=== PATIENT | female | born 1945 | race Caucasian/White ===

== ENCOUNTER 2021-09-20 12:19 | Day surgery (SDC) | payer MEDICARE, OTHER ==
[~2021-09-20] VITALS: Ht 165.1 cm; Wt 89.4 kg
[2021-09-20] MEDS ORDERED: METO25ER ×2 (12:57→12:59)
[2021-09-20] MEDS ORDERED: THYROID (12:58)
[2021-09-20] MEDS ORDERED: LEVSOD100 (12:59)
[2021-09-20] MEDS ORDERED: Dyazide 37.5-21 EACH (13:00)
--- NOTE | 2021-09-20 14:04 | NUR ---
09/20/21 1404 Luther Christopher BIOPSY FORCEPS OPENED BUT THEN DECIDED TO NOT USE IT
== END 2021-09-20 14:26 | disposition home or self-care (01) ==
LOC: ORSCSDS 12:19
PROVIDERS: Surgery
PROC: 3E0H8GC Introduction of Other Therapeutic Substance into Lower GI, Via Natural or Artificial Opening Endoscopic (ICD-10-PCS; principal; 2021-09-20 13:30)
DX: R10.9 Unspecified abdominal pain (principal); I10 Essential (primary) hypertension; E11.9 Type 2 diabetes mellitus without complications; E66.9 Obesity, unspecified; Z68.33 Body mass index [BMI] 33.0-33.9, adult; Z79.899 Other long term (current) drug therapy
CPT/HCPCS: J0461; J2405; J2704; J7120

== ENCOUNTER 2021-10-24 11:39 | Inpatient (IN) | payer MEDICARE, OTHER ==
[~2021-10-24] VITALS: Ht 162.6 cm; Wt 87.2 kg
[~2021-10-24 11:39] MED LIST: Dyazide 37.5-21 EACH PO; LEVSOD100 PO; METO25ER; THYROID
--- NOTE | 2021-10-26 07:15 | NUR ---
ADMITTED TO UNIT PATIENT UPSET COULD NOT HAVE VISITOR. UNDERSTANDS WHY BUT FOUND OUT THIS MORNIGN WHEN ARRIVED AND IS UPSET. Ambulatory in Day Surgery. Patient confirms NPO status and agrees with scheduled surgery.
--- NOTE | 2021-10-26 07:16 | NUR ---
PATIENT STATED GLASSES LEFT AT HOME.
--- NOTE | 2021-10-26 07:17 | NUR ---
BELONGINGS TAKEN TO PACU
--- NOTE | 2021-10-26 07:48 | NUR ---
TAKEN TO OR ONCE BEING TOLD FROM IN FLIGHT REFUELING OPERATOR. TAKEN AT HIS TIME AFTER ROOM WAS SET UP.
[2021-10-26 15:59] LABS: Hematocrit 32.1 % (33.0-51.0); Hemoglobin 10.7 g/dL (11.5-16.0)
--- NOTE | 2021-10-26 19:04 | NUR ---
SHIFT SUMMARY: OPEN CHOLECTOMY PATIENT CAME BACK FROM PACU TODAY 10/26/21 AT 1645. SHE IS ALERT AND ORIENTEDX4. THOUGH CAME BACK NAUSEOUS/VOMITING. PATIENT WAS GIVEN IV ZOFRAN, PHENERGAN, AND NOW VALIUM. PATIENT IS SOUND ASLEEP AT THIS TIME. FOR PAIN PATIENT IS ON FORMSTONE FITTER FENTANYL. SHE HAS A MIDLINE ABE THAT IS C/D/I. ON HER RLQ SHE HAS A GIO DRAIN WITH BRIGHT RED OUTPUT. BULB IS COMPRESSED AT THIS TIME. HER OSTOMY IS ON HER LLQ WITH SMALL AMOUNT OF RED IN OSTOMY BAG. PATIENT ALSO HAD A TOTAL HYSTERECTOMY DUE TO A CANCEROUS MASS. PATIENT IS TO BE NPO. PATIENT CALLS APPROPRIATELY. CALL LIGHT WITHIN REACH. THE PLAN IS TO BE HERE FOR AT LEAST 5 DAYS TO SEE IMPROVEMENT OF PAIN MANAGEMENT AND OUTPUT IN HER NEW OSTOMY.
--- NOTE | 2021-10-26 19:45 | NUR ---
DIDN'T REMEMBER CHARTING THAT THE PT HAD AN OSTOMY WITOUT DRAINAGE AND DRESSING INTACT BEFORE LEAVING PACU. ALL BELONINGS RETURNED TO PATIENT.
--- NOTE | 2021-10-27 05:42 | NUR ---
MANAGER OF CREATIVE SERVICES SUMMARY POD 0 AFTER COLECTOMY/HYSTERECTOMY EARLIER TODAY. MIDLINE ABE DRESSING C/D/I. GIO DRAIN TO RLQ DRAINING SEROSANGUINEOUS FLUID, 50 ML DRAINED THIS SHIFT. COLOSTOMY DRAINING VERY SMALL AMOUNTS OF PINK TINGED FLUID, STOMA PINK AND ROUND WITH NO ISSUES NOTED. PT'S PAIN FAIRLY WELL MANAGED WITH CURRENT CLINICAL CARE LEADER FENTANYL SETTINGS. PT DOES HAVE SOME BREAKTHROUGH PAIN MOSTLY WHEN MOVING AROUND. ARSHAD CATH PATENT AND DRAINING SOME BLUE TINTED URINE LEFT OVER FROM PROCEDURE. VSS, WILL CONTINUE TO MONITOR.
[2021-10-27] MEDS ORDERED: METO25 PO (05:52)
[2021-10-27 06:25] LABS: BASOPHILS ABSOLUTE AUTO 0.04 K/mm3 (0.00-0.23); BASOPHILS PERCENT AUTO 0 % (0-2); EOSINOPHILS ABSOLUTE AUTO 0.04 K/mm3 (0.00-0.68); EOSINOPHILS PERCENT AUTO 0 % (0-6); Hematocrit 30.3 % (33.0-51.0); Hemoglobin 9.8 g/dL (11.5-16.0); IMMATURE GRAN ABSOLUTE AUTO 0.08 K/mm3 (0.00-0.10); IMMATURE GRAN PERCENT AUTO 1 % (0-1); LYMPHOCYTES ABSOLUTE AUTO 1.54 K/mm3 (0.84-5.20); LYMPHOCYTES PERCENT AUTO 10 % (21-46); MONOCYTES ABSOLUTE AUTO 1.33 K/mm3 (0.16-1.47); MONOCYTES PERCENT AUTO 9 % (4-13); Mean Corpuscular HGB 29.9 pg (26.0-34.0); Mean Corpuscular HGB Conc 32.3 g/dL (31.5-36.5); Mean Corpuscular Volume 92 fL (80-100); NEUTROPHILS ABSOLUTE AUTO 11.72 K/mm3 (1.96-9.15); NEUTROPHILS PERCENT AUTO 80 % (41-73); Platelet Count 368 K/mm3 (150-400); RDW Coefficient Variation 13.6 % (11.7-14.2); RDW Standard Deviation 45.9 fL (35.1-46.3); Red Blood Cell Count 3.28 M/mm3 (3.80-5.20); White Blood Cell Count 14.75 K/mm3 (4.00-11.30)
[2021-10-27 07:12] LABS: Bun/Creatinine Ratio 28.8 (12.0-20.0); Calcium, Blood 8.5 mg/dL (8.5-10.1); Creatinine, Blood 1.32 mg/dL (0.40-1.00); Potassium, Blood 3.2 mmol/L (3.5-5.5)
--- NOTE | 2021-10-27 11:17 | NUR ---
10/27/21 1117 Roxi Thornton VERIFICATIONS: EDIT CHART.
--- NOTE | 2021-10-27 18:37 | NUR ---
SHIFT SUMMARY PT A&OX4, VSS/RA. POD1 COLECTOMY/HYSTER, ABE D/I, GIO SS 90 MLS OUT, OSTOMY RED/BEEFY, NOTHING OUT. ARSHAD PATENT & DRAINING, STAT LOCK ON, OFF FLOOR. BOB ICE CHIPS, NO N&V THIS SHIFT. PAIN: NAVAL DESIGNER FENT WITH DEMAND BUTTON AND 25 MCGS FENT FOR BREAKTHROUGH PAIN X3. STAND/TRANSFTER TO CHAIR/UP FOR 2 HOURS. REPOSITIONS SELF IN BED. WILL REPORT TO ONCOMING NOC AMINATA.
--- NOTE | 2021-10-28 01:01 | NUR ---
WENT TO REPLACE FENT VIAL FOR CALL OUT CLERK, ON REMOVAL VIAL LEAKED ONTO THE FLOOR. AMINATA QUINTERO AND AMINATA QUESADA WITNESSED VIAL LEAKING. DEVIN IN PHARMACY CALLED ABOUT INCIDENT.
--- NOTE | 2021-10-28 03:53 | NUR ---
SHIFT SUMMARY A/O X4. POD2 OPEN COLECTOMY AND HYSTERECTOMY WITH BILATERAL OOPHORECTOMY. MIDLINE INCISION WITH ABE DRESSING, C/D/I. OSTOMY PINK AND BEEFY, NO BOWEL OUTPUT THIS SHIFT. GIO DRAIN TO RLQ DRAINING SS FLUID. PAIN BEING MANAGED WITH HOME BUILDER PUMP AND BREAKTHROUGH PAIN MEDICATION. PHENERGAN GIVEN X1 FOR NAUSEA. ARSHAD DRAINING TO GRAVITY. LR AT 150/HR. WILL CONTINUE TO MONITOR AND REPORT TO ONCOMING RN.
[2021-10-28 04:09] LABS: BASOPHILS ABSOLUTE AUTO 0.05 K/mm3 (0.00-0.23); BASOPHILS PERCENT AUTO 0 % (0-2); EOSINOPHILS PERCENT AUTO 1 % (0-6); Hematocrit 27.6 % (33.0-51.0); Hemoglobin 8.6 g/dL (11.5-16.0); IMMATURE GRAN PERCENT AUTO 1 % (0-1); LYMPHOCYTES ABSOLUTE AUTO 1.65 K/mm3 (0.84-5.20); LYMPHOCYTES PERCENT AUTO 12 % (21-46); MONOCYTES ABSOLUTE AUTO 1.05 K/mm3 (0.16-1.47); MONOCYTES PERCENT AUTO 8 % (4-13); Mean Corpuscular HGB 29.4 pg (26.0-34.0); Mean Corpuscular HGB Conc 31.2 g/dL (31.5-36.5); Mean Corpuscular Volume 94 fL (80-100); Mean Platelet Volume 9.1 fL (9.1-12.4); NEUTROPHILS ABSOLUTE AUTO 10.42 K/mm3 (1.96-9.15); NEUTROPHILS PERCENT AUTO 78 % (41-73); Platelet Count 322 K/mm3 (150-400); RDW Coefficient Variation 13.8 % (11.7-14.2); RDW Standard Deviation 46.9 fL (35.1-46.3); Red Blood Cell Count 2.93 M/mm3 (3.80-5.20); White Blood Cell Count 13.37 K/mm3 (4.00-11.30)
[2021-10-28 04:29] LABS: Bun/Creatinine Ratio 23.8 (12.0-20.0); Calcium, Blood 8.6 mg/dL (8.5-10.1); Creatinine, Blood 1.05 mg/dL (0.40-1.00); Potassium, Blood 3.2 mmol/L (3.5-5.5)
--- NOTE | 2021-10-28 16:05 | NUR ---
SHIFT SUMMARY PT A&OX4, VSS/RA-BIOX BEDSIDE, SATS >93%; TCDB & I.S. EDU/ENC/DEMO T/O DAY. POD2 COLECTOMY/HYSTER, ABE CDI, GIO 30 MLS SS OUT, OSTOMY SS OUT, NO STOOL. BOB ICE CHIPS, NO N&V TODAY. PAIN MANAGED WITH FENT CUT OFF SAW OPERATOR METAL AND TYLENOL, NO BREAKTHRU MED REQ. IV AND POWERGLIDE RUE, IVF @ 100 MLS/HR. ARSHAD PATENT & DRAINING GREEN/YELLOW-CLEAR URINE, OFF FLOOR, STAT LOCK ON. WILL REPORT TO ONCOMING NOC AMINATA.
[2021-10-29 03:51] LABS: BASOPHILS ABSOLUTE AUTO 0.03 K/mm3 (0.00-0.23); BASOPHILS PERCENT AUTO 0 % (0-2); EOSINOPHILS ABSOLUTE AUTO 0.33 K/mm3 (0.00-0.68); EOSINOPHILS PERCENT AUTO 3 % (0-6); Hematocrit 24.6 % (33.0-51.0); Hemoglobin 7.8 g/dL (11.5-16.0); IMMATURE GRAN ABSOLUTE AUTO 0.07 K/mm3 (0.00-0.10); IMMATURE GRAN PERCENT AUTO 1 % (0-1); LYMPHOCYTES ABSOLUTE AUTO 1.68 K/mm3 (0.84-5.20); LYMPHOCYTES PERCENT AUTO 14 % (21-46); MONOCYTES ABSOLUTE AUTO 0.78 K/mm3 (0.16-1.47); MONOCYTES PERCENT AUTO 7 % (4-13); Mean Corpuscular HGB 29.7 pg (26.0-34.0); Mean Corpuscular HGB Conc 31.7 g/dL (31.5-36.5); Mean Corpuscular Volume 94 fL (80-100); NEUTROPHILS PERCENT AUTO 76 % (41-73); Platelet Count 313 K/mm3 (150-400); RDW Coefficient Variation 13.5 % (11.7-14.2); RDW Standard Deviation 46.5 fL (35.1-46.3); Red Blood Cell Count 2.63 M/mm3 (3.80-5.20); White Blood Cell Count 11.99 K/mm3 (4.00-11.30)
[2021-10-29 04:11] LABS: Anion Gap 5 mmol/L (6-16); Blood Urea Nitrogen 19 mg/dL (8-24); Bun/Creatinine Ratio 22.5 (12.0-20.0); CO2, Blood 28 mmol/L (21-32); Calcium, Blood 8.3 mg/dL (8.5-10.1); Chloride, Blood 105 mmol/L (98-108); Creatinine, Blood 0.85 mg/dL (0.40-1.00); Glomerular Filtration Rate >60 (60-); Glucose, Blood 104 mg/dL (70-99); Sodium, Blood 138 mmol/L (136-145)
--- NOTE | 2021-10-29 16:38 | NUR ---
SUMMARY: PT IS POD3 OPEN COLECTOMY AND HYSTERECTOMY. VSS, A/O. SURGICAL SITE WNL, ABE CDI. SS DRAINAGE FROM OSTOMY, NO FLATUS NOTED. BT ARE HYPOACTIVE, PT HAS DENIED N/V AND TOLERATING ICE CHIPS. FENTANYAL KENO TERMINAL OPERATOR AND SCHEDULED TYLENOL APPEAR TO BE MANAGING PAIN. PT SAT UP AND CHAIR TODAY AND REPORTED MORE PAIN WITH MOVEMENT. TOTAL OF 70ML OF SS DRAINAGE FROM GIO. PT ABLE TO VOID SINCE ARSHAD DC'D. NO ACUTE SAFETY CONCERNS AT THIS TIME, WILL REPORT TO GINA COATES.
--- NOTE | 2021-10-29 18:29 | NUR ---
POST OP: REPORT RECEIVED FROM CIPRIANO, INDUSTRIAL ENG. UPON ARRIVAL TO UNIT PT IS ORIENTED, A BIT DROWSY. SURGICAL SITES WNL, VSS. PT ASKING FOR ICE CHIPS. WILL CTM.
--- NOTE | 2021-10-30 03:49 | NUR ---
A/O X4. POD4 OPEN COLECTOMY AND HYSTERECTOMY WITH OOPHERECTOMY, MIDLINE INCISION WITH ABE DRESSING, SCANT AMOUNT OF RED DRIED DRAINAGE, INTACT. GIO DRAIN TO RLQ- 100ML EMPTIED SO FAR THIS SHIFT. OSTOMY PINK AND BEEFY- APPLICATION CHANGED THIS SHIFT, NO BOWEL MOVEMENT. VOIDING WELL ON BSC. FENT BORING MILL SET UP OPERATOR FOR PAIN CONTROL, MODERATE RELIEF. OXYGEN SATURATION MAINTAINED ABOVE 92% ON RA THIS SHIFT. VSS. WILL CONTINUE TO MONITOR AND REPORT TO ONCOMING RN.
--- NOTE | 2021-10-30 16:42 | NUR ---
HARIS RESIDENTIAL SUPPORT WORKER DC'D AT ABOUT 1345, 1 NARCO GIVEN, SEE PAIN ASSESSMENT. WILL CTM AND MEDICATE PER EMAR
--- NOTE | 2021-10-30 16:44 | NUR ---
SUMMARY: PT IS POD4 COLECTOMY/HYSTERECTOMY. NO ACUTE CHANGES TODAY, VSS, A/O. SURGICAL SITE IS WNL, CDI. ABOUT 80ML OF GIO OUTPUT. BOWEL TONES ACTIVE. PT REPORTED SOME NAUSEA AFTER NARCO, RESLOVED WITH ZOFRAN. ABLE TO HAVE SMALL BITES OF FULL LIQ DIET FOR LUNCH. PAIN APPEARS TO BE MANAGED CURRENTLY WITH 1 NARCO AND 25MCG OF FENTANYAL FOR BREAKTHROUGH PAIN. PT IS VOIDING AND AMBULATES WELL TO CHAIR AND COMMODE. NO SAFETY CONCERNS, WILL CTM AND REPORT TO GINA COATES.
[2021-10-31 04:42] LABS: BASOPHILS ABSOLUTE AUTO 0.04 K/mm3 (0.00-0.23); BASOPHILS PERCENT AUTO 0 % (0-2); EOSINOPHILS ABSOLUTE AUTO 0.35 K/mm3 (0.00-0.68); EOSINOPHILS PERCENT AUTO 4 % (0-6); Hematocrit 24.8 % (33.0-51.0); Hemoglobin 7.7 g/dL (11.5-16.0); IMMATURE GRAN ABSOLUTE AUTO 0.07 K/mm3 (0.00-0.10); IMMATURE GRAN PERCENT AUTO 1 % (0-1); LYMPHOCYTES ABSOLUTE AUTO 1.58 K/mm3 (0.84-5.20); LYMPHOCYTES PERCENT AUTO 17 % (21-46); MONOCYTES ABSOLUTE AUTO 0.65 K/mm3 (0.16-1.47); MONOCYTES PERCENT AUTO 7 % (4-13); Mean Corpuscular HGB 29.4 pg (26.0-34.0); Mean Corpuscular Volume 95 fL (80-100); Mean Platelet Volume 8.9 fL (9.1-12.4); NEUTROPHILS ABSOLUTE AUTO 6.47 K/mm3 (1.96-9.15); NEUTROPHILS PERCENT AUTO 71 % (41-73); NRBC ABSOLUTE 0.02 K/mm3 (0.00-0.02); NRBC Auto 0.2 /100 WBC (0.0-0.2); Platelet Count 327 K/mm3 (150-400); RDW Coefficient Variation 13.9 % (11.7-14.2); RDW Standard Deviation 46.8 fL (35.1-46.3); Red Blood Cell Count 2.62 M/mm3 (3.80-5.20); White Blood Cell Count 9.16 K/mm3 (4.00-11.30)
--- NOTE | 2021-10-31 05:01 | NUR ---
SHIFT SUMMARY PT A/0 X4. VSS. POD5 OPEN COLECTOMY WITH HYSTERECTOMY AND OOPHERECTOMY. MIDLINE INCISION WITH ABE DRESSING INTACT, GIO DRAIN TO RLQ PUTTING OUT SS DRAINAGE. OSTOMY PINK AND BEEFY, NO BM AT THIS TIME. PAIN MANAGED WITH PO PAIN MEDICATIONS. GETTING UP TO BEDSIDE COMMODE WITH STAND BY ASSIST. VOIDING WELL. WILL CONTINUE TO MONITOR AND REPORT TO ONCOMING RN.
[2021-10-31 05:28] LABS: Anion Gap 7 mmol/L (6-16); Blood Urea Nitrogen 11 mg/dL (8-24); Bun/Creatinine Ratio 12.6 (12.0-20.0); CO2, Blood 25 mmol/L (21-32); Calcium, Blood 8.5 mg/dL (8.5-10.1); Chloride, Blood 106 mmol/L (98-108); Creatinine, Blood 0.87 mg/dL (0.40-1.00); Glomerular Filtration Rate >60 (60-); Glucose, Blood 92 mg/dL (70-99); Potassium, Blood 3.3 mmol/L (3.5-5.5); Sodium, Blood 138 mmol/L (136-145)
--- NOTE | 2021-10-31 11:03 | NUR ---
DR. CERDA IN TO SEE PT. AT THIS TIME. PATIENT TOLERATING PO PAIN MED, ATE APPLESAUCE WITH PAIN PILL, DENIES NAUSEA. STATES MEDICATION IS EFFECTIVE FOR ABD. INCISIONAL PAIN RELIEF.
--- NOTE | 2021-10-31 15:11 | NUR ---
PATIENT UP IN CHAIR TODAY X A FEW HOURS. AFTER LUNCH BEGIN TO HAVE SHARP PAIN AND QUICKLY GOT WORSE, PATIENT BREATHING RAPID AND STATING IT WAS TOO MUCH TO BEAR. FENTANYL 25MCG IV GIVEN AND PT. VERBALIZE RELIEF AFTER 5 MINUTES. BACK TO BED AND PT. NAPPING NOW, CALL LIGHT IN REACH. PATIENT DID STATE THAT NORCO WAS EFFECTIVE THIS A.M. FOR PAIN RELIEF. HAS DENIES NAUSEA.
--- NOTE | 2021-10-31 19:14 | NUR ---
PATIENT COLOSTOMY POUCH AND FLANGE CHANGED TODAY. PT. STOOD UP AND BROWN WATERY STOOL CAME OUT, FLANGE NOT INTACT. APPROX 100CC BROWN WATERY STOOL. PATEINT CLEANED AND APPLIED NEW BAG AND EXPLAINED TO PATIENT HOW I WAS DOING IT, APPEARED INTERESTED AND ASKING QUESTIONS.
--- NOTE | 2021-11-01 03:51 | NUR ---
SHIFT SUMMARY A/O X4. POD5 OPEN COLECTOMY WITH HYSTERECTOMY. ABDOMINAL INCISION COVERED WITH ABE DRESSING C/D/I. GIO DRAIN TO RLQ WITH SS DRAINAGE. OSTOMY PUTTING OUT BROWN LIQUID STOOL. PAIN BEING MANAGED WITH PO PAIN MEDICATIONS. VOIDING WELL. TOLERATING FULL LIQIUD DIET. NO ACUTE CHANGES OVER NIGHT, VITAL SIGNS STABLE. WILL CONTINUE TO MONITOR AND REPORT TO ONCOMING RN.
--- NOTE | 2021-11-01 11:18 | NUR ---
POUCH AND FLANGE CHANGED. TEACHING DONE ON EMPTYING AND APPLYING POUCH AND FLANGE. DISCUSSED USE OF PASTE AND STOMA POWDER. PATIENT PRACTICE CLOSING POUCH AND UNDERSTANDS CONCEPT OF EMPTYING FLATUS AND STOOL FROM POUCH, CLEANING POUCH , AND WHEN TO CHANGE FLANGE. DEMONSTRATED APPLYING POUCH AND FIT OVER STOMA.
--- NOTE | 2021-11-01 18:11 | NUR ---
PATIENT UP IN CHAIR TODAY, 1-2 PERSON MOD ASSIST USING FWW AND GAIT BELT. USING BSC TODAY AND DID VOID AND HAD BM. DENIES PAIN, DENIES NAUSEA. APPETITE POOR BUT DID SHOW INTEREST IN REGULAR DIET TONITE AND ATE PART OF CHICKEN AND SOME NOODLES. BACK TO BED AND RESTING AT THIS TIME.
--- NOTE | 2021-11-02 04:41 | NUR ---
MEDICATED FOR PAIN MANAGEMENT WITH NORCO ABOUT Q4HRS FOR PAIN MANAGEMENT. PATIENT TEACHING PROVIDED FOR COLOSOTMY CARE, PATIENT DEMONSTRATED EMPTYING COLOSTOMY. ABLE TO AMBULATE INDEPENENTLY TO BATHROOM WITH SUPERVISION, STEADY GAIT. YADI INTACT TO MIDLINE ABDOMIN, WELL APPROXIMATED,MARTA. COLOSTOMY INTACT. SAFETY MAINTAINED, CALL SAM IN REACH.
[2021-11-02] MEDS ORDERED: Norco 5-325 Ta1 EACH PO (10:40)
== END 2021-11-02 11:20 | disposition home or self-care (01) | DRG 329 ==
LOC: SURS 10-26 06:05 → PRE IP 10-26 07:30 → SURS 10-26 16:20
PROVIDERS: Anesthesiology; Obstetrics & Gynecology; Surgery; ADMIT Surgery
PROC: 0DTN0ZZ Resection of Sigmoid Colon, Open Approach (ICD-10-PCS; principal; 2021-10-26 07:30)
PROC: 0UT90ZL Resection of Uterus, Supracervical, Open Approach (ICD-10-PCS; 2021-10-26 07:30)
PROC: 0UT70ZZ Resection of Bilateral Fallopian Tubes, Open Approach (ICD-10-PCS; 2021-10-26 07:30)
PROC: 0UT20ZZ Resection of Bilateral Ovaries, Open Approach (ICD-10-PCS; 2021-10-26 07:30)
DX: K57.20 Diverticulitis of large intestine with perforation and abscess without bleeding (principal); I12.0 Hypertensive chronic kidney disease with stage 5 chronic kidney disease or end stage renal disease; K65.8 Other peritonitis; E11.9 Type 2 diabetes mellitus without complications; Z98.890 Other specified postprocedural states; Z90.49 Acquired absence of other specified parts of digestive tract; Z79.899 Other long term (current) drug therapy; Z91.041 Radiographic dye allergy status; Z88.8 Allergy status to other drugs, medicaments and biological substances; N18.9 Chronic kidney disease, unspecified
CPT/HCPCS: 36415; 74018; 80048; 85014; 85018; 85025; 86850; 86900; 86901; 88305; 88307; 94762; A9270; J0171; J0690; J1100; J1650; J2370; J2405; J2550; J2704; J3010; J3360; J7040; J7120; Q9968

== ENCOUNTER 2021-11-14 16:40 | Inpatient (IN) | payer MEDICARE, OTHER ==
[~2021-11-14] VITALS: Ht 165.1 cm; Wt 85.0 kg
[~2021-11-14 16:40] MED LIST changes: +METO25 PO; +Norco 5-325 Ta1 EACH PO
[2021-11-14 17:22] LABS: BASOPHILS ABSOLUTE AUTO 0.01 K/mm3 (0.00-0.23); BASOPHILS PERCENT AUTO 0 % (0-2); EOSINOPHILS PERCENT AUTO 0 % (0-6); Hematocrit 29.8 % (33.0-51.0); Hemoglobin 9.9 g/dL (11.5-16.0); IMMATURE GRAN ABSOLUTE AUTO 0.02 K/mm3 (0.00-0.10); IMMATURE GRAN PERCENT AUTO 0 % (0-1); LYMPHOCYTES ABSOLUTE AUTO 0.51 K/mm3 (0.84-5.20); LYMPHOCYTES PERCENT AUTO 9 % (21-46); MONOCYTES ABSOLUTE AUTO 0.41 K/mm3 (0.16-1.47); MONOCYTES PERCENT AUTO 8 % (4-13); Mean Corpuscular HGB 29.6 pg (26.0-34.0); Mean Corpuscular HGB Conc 33.2 g/dL (31.5-36.5); Mean Corpuscular Volume 89 fL (80-100); NEUTROPHILS ABSOLUTE AUTO 4.54 K/mm3 (1.96-9.15); NEUTROPHILS PERCENT AUTO 83 % (41-73); Platelet Count 417 K/mm3 (150-400); RDW Coefficient Variation 14.2 % (11.7-14.2); RDW Standard Deviation 46.5 fL (35.1-46.3); Red Blood Cell Count 3.34 M/mm3 (3.80-5.20); White Blood Cell Count 5.49 K/mm3 (4.00-11.30)
[2021-11-14 17:42] LABS: Albumin/Globulin Ratio 0.6 (0.8-1.8); Bilirubin, Total 0.2 mg/dL (0.1-1.0); Bun/Creatinine Ratio 25.6 (12.0-20.0); Calcium, Blood 8.7 mg/dL (8.5-10.1); Creatinine, Blood 1.25 mg/dL (0.40-1.00); Globulin, Blood 4.9 g/dL (2.2-4.0); Potassium, Blood 4.3 mmol/L (3.5-5.5); Total Protein, Blood 7.9 g/dL (6.4-8.2)
--- NOTE | 2021-11-14 22:47 | NUR ---
transfer report from Olivia CHAMBERS RN on PT admitted with covid 19 hypoxia viral pneu with room air sats reported as 86 currently on 4 l nc and has dyspnea with exertion . Covid test 8 dys ago positive no current test results found in review. Await admission will palce in enhanced isolation for covid 19. Await admission.
--- NOTE | 2021-11-15 04:56 | NUR ---
PT with lap sigmoid colectomy & clostomy placement 10/26/21 who tested positive for covid 19 a week prior to admission had been recovering at home but became hypoxic & very dyspnic. She had home covid 19 test with no results in EMR. She is on bioxx and 4 l nc to keep sats greater than 90%. Colostomy patent liquid light brown stool. co abd pain but declines pain med. on IV steroids remdesiver given.
[2021-11-15 05:36] LABS: Hematocrit 29.5 % (33.0-51.0); Hemoglobin 9.2 g/dL (11.5-16.0); Mean Corpuscular HGB Conc 31.2 g/dL (31.5-36.5); Mean Corpuscular Volume 90 fL (80-100); Platelet Count 406 K/mm3 (150-400); RDW Coefficient Variation 14.3 % (11.7-14.2); RDW Standard Deviation 46.5 fL (35.1-46.3); Red Blood Cell Count 3.29 M/mm3 (3.80-5.20); White Blood Cell Count 5.22 K/mm3 (4.00-11.30)
--- NOTE | 2021-11-15 05:51 | NUR ---
Spouse called this AM & updated on plan of care anticipated treatment for 4 days IV remdesivere. PT continues on 4 l ncwith bioxx shows 92%.
[2021-11-15 06:05] LABS: Bun/Creatinine Ratio 28.2 (12.0-20.0); Calcium, Blood 8.6 mg/dL (8.5-10.1); Creatinine, Blood 1.17 mg/dL (0.40-1.00); Potassium, Blood 4.3 mmol/L (3.5-5.5)
[2021-11-15 06:18] LABS: BAND PERCENT MAN 7 % (0-8); BASOPHILS PERCENT MAN 0 % (0-2); EOSINOPHILS PERCENT MAN 0 % (0-6); LYMPHOCYTES ABSOLUTE MAN 0.52 K/mm3 (0.84-5.20); LYMPHOCYTES PERCENT MAN 10 % (21-46); MONOCYTES PERCENT MAN 2 % (4-13); NEUTROPHILS ABSOLUTE MAN 4.59 K/mm3 (1.96-9.15); SEG NEUTROPHILS PERCENT MAN 81 % (41-73); TOTAL CELLS COUNTED 100
[2021-11-15 12:04] LABS: Influenza A, PCR NEGATIVE (NEGATIVE); Influenza B, PCR NEGATIVE (NEGATIVE); Resp Syncytial Virus, PCR NEGATIVE (NEGATIVE)
[2021-11-15 12:47] LABS: SARS-Cov-2 (COVID-19) PCR, MMC POSITIVE (NEGATIVE)
--- NOTE | 2021-11-15 13:59 | NUR ---
O2 TITRATED UP O2 TITRATED UP TO 5L. PT SATING AT 89-90% WITH THIS. RT NOTIFIED THAT HIGH FLOW NC IS LIKELY NEEDED FOR THE PT.
[2021-11-15 15:43] LABS: C-REACTIVE PROTEIN, EXT RANGE 9.28 mg/dL (0.000-0.300)
--- NOTE | 2021-11-15 17:11 | NUR ---
SHIFT SUMMARY PT DESATS EASILY WITH ANY EXERTION. USING THE BSC OCCATIONALLY T/O SHIFT WITH SBA. PT TAKES SEVERAL MINUTES AFTER EACH TOILETING TRIP TO RECOVER. O2 TITRATED UP TO 5L AT REST THIS SHIFT. INCREASED TO 7-8L WITH EXERTION. PT TRANSITIONED TO HIGH FLOW NC. VS REVIEWED. D-DIMER CHECKED & ELEVATED. NO OTHER ACUTE CHANGES IN ASSESSMENT AT THIS TIME. CALL LIGHT IN REACH.
--- NOTE | 2021-11-15 22:29 | NUR ---
DR LARA called about PT request for cepachol lozenge & to discuss the CT Pulm angiogram the day DR had mentioned ordering for elevated ddimer. None was ordered& PT says she refused to have CT pulm angiogram done tonight she has had recation severe to CT in recent past when being worked up for suspected colon cancer. PT has been having pain with deep inspiration cough covid 19 for last 10 days. She is post surgical total abd hysterectomy lap sigmoid colectomy & colostomy placement on 10/26/2021. She has cold chain reaction listed on hx PT says that occured with CTscan of abd pelvis & barium administration. denies acute distress currently Has HOB up & able to communicate. PT says her multiple biopsies for suspected colon cancer were neg but she had the most severe diverticulitis that had invaded other tissues requiring hysterectomy & she latasha she thinks she had ovaries bilat removed. DR LARA says delay ordering CT Pulm angiogram tonight resume discussion with Day DR Fischer
[2021-11-16 05:32] LABS: BASOPHILS ABSOLUTE AUTO 0.01 K/mm3 (0.00-0.23); BASOPHILS PERCENT AUTO 0 % (0-2); EOSINOPHILS PERCENT AUTO 0 % (0-6); Hematocrit 31.6 % (33.0-51.0); Hemoglobin 9.8 g/dL (11.5-16.0); IMMATURE GRAN ABSOLUTE AUTO 0.02 K/mm3 (0.00-0.10); IMMATURE GRAN PERCENT AUTO 1 % (0-1); LYMPHOCYTES ABSOLUTE AUTO 0.58 K/mm3 (0.84-5.20); LYMPHOCYTES PERCENT AUTO 14 % (21-46); MONOCYTES ABSOLUTE AUTO 0.43 K/mm3 (0.16-1.47); MONOCYTES PERCENT AUTO 10 % (4-13); Mean Corpuscular HGB 29.1 pg (26.0-34.0); Mean Corpuscular Volume 94 fL (80-100); Mean Platelet Volume 9.4 fL (9.1-12.4); NEUTROPHILS ABSOLUTE AUTO 3.14 K/mm3 (1.96-9.15); NEUTROPHILS PERCENT AUTO 75 % (41-73); Platelet Count 406 K/mm3 (150-400); RDW Coefficient Variation 14.1 % (11.7-14.2); RDW Standard Deviation 48.3 fL (35.1-46.3); Red Blood Cell Count 3.37 M/mm3 (3.80-5.20); White Blood Cell Count 4.18 K/mm3 (4.00-11.30)
--- NOTE | 2021-11-16 06:25 | NUR ---
PT with covid 19 & elevated DDimer on oxygen high flow weaned from 5 l to 3 l & tolerated well at rest sats 90 to 92 % but this AM uo to BSC with assist & she desats to 75% up to 85 on 3 l high flow & had to raise 02 back to 5 l to get sat to 90%. Now 3 l high flow o2 at rest 90% .
--- NOTE | 2021-11-16 18:35 | NUR ---
END OF SHIFT SUMMARY: AT THE BEGINNING OF THE SHIFT, PATIENT WAS MOANING SOFTLY IN THE ROOM. PATIENT DENIED NEED FOR PAIN MEDICATION. PATIENT REPORTED PAIN WHEN ATTEMPTING TO BREATH FULLY. PATIENT AT 3-5L VIA HIGH FLOW NASAL CANNULA TO MAINTAIN AN SPO2 FROM 89-95%. PATIENT MAINLY REQUIRED 5L TO RECOVER FROM GETTING UP TO THE [facility] [place]. PATIENT HAD SHORTNESS OF BREATH WITH ACTIVITY. PRIOR TO CT SCAN, PATIENT EXPERIENCED ABDOMINAL PAIN (LATER REPORTED IT WAS FROM [facility]). MEDICATED FOR PAIN AND PROVIDED WITH AN ENSURE. ONCE THE CT SCAN WAS COMPLETE AND THE PAIN MEDICATION WAS TAKING EFFECT, THAT PATIENT'S CONDITION IMPROVED. PATIENT'S VOICE WAS STRONGER, PATIENT NO LONGER MOANED IN THE BED AND PATIENT WAS AT 93-96% ON 3L VIA HIGH FLOW NASAL CANNULA. PATIENT REPORTED FEELING BETTER AND REQUESTED PAIN MEDICATION AT THE END OF SHIFT (IDENTIFYING THIS A CHANGE THAT HAD LEAD TO HER FEELING BETTER). PATIENT HAS A MODERATE APPETITE AND IS ABLE TO EAT WITHOUT DESATURATION. PATIENT IS MOTIVATED TO IMPROVE HEALTH.
[2021-11-17 05:56] LABS: BASOPHILS PERCENT AUTO 0 % (0-2); EOSINOPHILS PERCENT AUTO 0 % (0-6); Hematocrit 33.9 % (33.0-51.0); Hemoglobin 10.6 g/dL (11.5-16.0); IMMATURE GRAN ABSOLUTE AUTO 0.07 K/mm3 (0.00-0.10); IMMATURE GRAN PERCENT AUTO 1 % (0-1); LYMPHOCYTES ABSOLUTE AUTO 0.96 K/mm3 (0.84-5.20); LYMPHOCYTES PERCENT AUTO 9 % (21-46); MONOCYTES ABSOLUTE AUTO 0.51 K/mm3 (0.16-1.47); MONOCYTES PERCENT AUTO 5 % (4-13); Mean Corpuscular HGB 28.6 pg (26.0-34.0); Mean Corpuscular HGB Conc 31.3 g/dL (31.5-36.5); Mean Corpuscular Volume 92 fL (80-100); NEUTROPHILS PERCENT AUTO 85 % (41-73); Platelet Count 566 K/mm3 (150-400); RDW Coefficient Variation 14.2 % (11.7-14.2); RDW Standard Deviation 47.9 fL (35.1-46.3); White Blood Cell Count 10.34 K/mm3 (4.00-11.30)
[2021-11-17 06:38] LABS: Creatinine, Blood 1.17 mg/dL (0.40-1.00); Potassium, Blood 4.6 mmol/L (3.5-5.5)
--- NOTE | 2021-11-17 18:48 | NUR ---
SHIFT SUMMARY PT ADMITTED FOR COVID 19. CURRENTLY ON 8-10 LITERS HIGH FLOW NC. DYSPNEA ON EXERTION. COLOSTOMY CHANGED THIS SHIFT. VSS. WILL REPORT TO GINA COATES.
[2021-11-18 05:34] LABS: BASOPHILS ABSOLUTE AUTO 0.01 K/mm3 (0.00-0.23); BASOPHILS PERCENT AUTO 0 % (0-2); EOSINOPHILS PERCENT AUTO 0 % (0-6); Hematocrit 32.5 % (33.0-51.0); Hemoglobin 10.2 g/dL (11.5-16.0); IMMATURE GRAN ABSOLUTE AUTO 0.09 K/mm3 (0.00-0.10); IMMATURE GRAN PERCENT AUTO 1 % (0-1); LYMPHOCYTES ABSOLUTE AUTO 0.78 K/mm3 (0.84-5.20); LYMPHOCYTES PERCENT AUTO 8 % (21-46); MONOCYTES ABSOLUTE AUTO 0.64 K/mm3 (0.16-1.47); MONOCYTES PERCENT AUTO 6 % (4-13); Mean Corpuscular HGB 29.1 pg (26.0-34.0); Mean Corpuscular HGB Conc 31.4 g/dL (31.5-36.5); Mean Corpuscular Volume 93 fL (80-100); NEUTROPHILS ABSOLUTE AUTO 8.84 K/mm3 (1.96-9.15); NEUTROPHILS PERCENT AUTO 85 % (41-73); Platelet Count 521 K/mm3 (150-400); RDW Coefficient Variation 14.2 % (11.7-14.2); RDW Standard Deviation 47.6 fL (35.1-46.3); Red Blood Cell Count 3.51 M/mm3 (3.80-5.20); White Blood Cell Count 10.36 K/mm3 (4.00-11.30)
[2021-11-18 06:04] LABS: Albumin, Blood 2.7 g/dL (3.4-5.0); Albumin/Globulin Ratio 0.6 (0.8-1.8); Bilirubin, Total 0.3 mg/dL (0.1-1.0); Bun/Creatinine Ratio 40.9 (12.0-20.0); Calcium, Blood 8.5 mg/dL (8.5-10.1); Creatinine, Blood 1.15 mg/dL (0.40-1.00); Globulin, Blood 4.9 g/dL (2.2-4.0); Potassium, Blood 4.5 mmol/L (3.5-5.5); Total Protein, Blood 7.6 g/dL (6.4-8.2)
--- NOTE | 2021-11-18 16:34 | NUR ---
SHIFT SUMMARY PATIENT IS ALERT AND ORIENTED, PLEASANT AND COOPERATIVE WITH CARE. THE PATIENT'S O2 WAS INCREASED BACK TO HIGH FLOW 8LPM FROM 6LPM. SATTING AT 96% AT REST. QUICKLY DESATS WITH ACTIVITY OR WHILE TALKING. IT HAS BEEN HELPFUL FOR THE PATIENT TO USE A NONREBREATHER WHILE THEY RECOVER AFTER USING THE BSC. THE PATIENT IS ON CONTINUOUS PULSE OX. TELE DC'D THIS SHIFT. OSTOMY PRESENT. PATIENT WILL CALL APPROPRIATELY. CALL LIGHT WITHIN REACH. THIS NURSE WILL CONTINUE TO CARE FOR THE PATIENT UNTIL SHIFT REPORT IS GIVEN TO ONCOMING NURSE.
--- NOTE | 2021-11-19 03:25 | NUR ---
SHIFT SUMMARY Patient AAOX3, denies pain or disconfort at this time. Pt vital stable, she is moving with more ease now from bed to bedside commode. She is still at 8L high flow N/C. Patient pleasant with care, we will continue to monitor for any acute changes.
--- NOTE | 2021-11-19 10:50 | NUR ---
PT TRANSFERRED FROM MEDICAL FLOOR REQUIRING HIGHER AMOUNT OF OXYGEN, WAS ON NON REBREATHER MASK UPON ARRIVAL, SWITCHED TO AIRVO SETTINGS 55L 80% FIO2 PT SATTING 88-90% WAS ABLE TO STAND AMBULATE AND TRANSFER TO PCU BED, DESATS WITH MINIMAL ACTIVITY. ALERT AND ORIENTED X4, GETS ANXIOUS MOST OF THE TIME SOMETIMES IRRITATED AND NEEDY. VITALS HRR SR/SB AT 50-65'S, BP SYSTOLIC 130'S, AFEBRILE. PT HAS COLOSTOMY IN PLACE WITH BROWN STOOL, HAS 4 LAPSITES IN ABDOMEN POST SURGERY HEALING WELL. SBA TO BSC. ATE BREAKFAST AND TOOK MEDS THIS MORNING WITH NO ISSUES, CURRENTLY IN BED RESTING, PT ABLE TO MAKE NEEDS KNOWN, CALL LIGHTS IN REACH WILL MONITOR
--- NOTE | 2021-11-19 13:49 | NUR ---
PT DISCHARGE TO HOME TODAY, NO CHANGE IN MEDICATIONS. PT INSTRUCTED TO FF-UP APPT WITH PCP PT STATED SHE HAS ONE COMING UP ON 12/06/21. NO OTHER ISSUES ENCOUNTERED PRIOR TO DISCHARGE. CAB WAS CALLED FOR TRANSPOSTATION. ALL BELONGINGS SENT WITH THE PT.
--- NOTE | 2021-11-19 18:35 | NUR ---
PT SUMMARY: SEE PREVIOUS NOTES. PT TITRATED DOWN TO 60% FIO2 ON AIRVO 55L. PT SATS REMAINED ABOVE 90%. NO ACUTE CHANGES, PT STAYED IN BED MOST OF THE SHIFT, VITALS HAS BEEN STABLE. CALLS APPROPRIATELY, WILL REPORT TO ONCOMING SHIFT
--- NOTE | 2021-11-20 03:41 | NUR ---
END OF SHIFT: PATIENT IS CURRENLTY SLEEPING AND HAS BEEN ALERT AND ORIENTED THE ENTIRE NIGHT. IV OF THE RIGHT AC FAILED REPLACED IN THE SAME REGION DIFFERENT VEIN. DENIES CHEST PAIN, SOB, AIRVO SETTINGS OF 50L AT 45% FIO2 WHICH IS AN IMPROVEMENT, STILL DESATURATED WHEN MOVED TO THE BSC, HOWEVER, RECOVERED QUICKLY AND DID NOT DESAT PAST 88. PATIENT HAD SOME PAIN THROUGH THE NIGHT, MEDICATED PER EMAR WHICH HAS LET THE PATIENT SLEEP, INTAKE OF WATER HAS BEEN GREAT. PATIENT DOES HAVE SOME THROAT PAIN, CONTRIBUTED FROM THE AIRVO. PATINET HAS BEEN SB TO SR 50-60'S. OVERALL I WOULD SAY PATIENT IS IMPROVING. WILL CONTINUE TO MONITOR.
[2021-11-20 04:04] LABS: BASOPHILS ABSOLUTE AUTO 0.01 K/mm3 (0.00-0.23); BASOPHILS PERCENT AUTO 0 % (0-2); EOSINOPHILS ABSOLUTE AUTO 0.04 K/mm3 (0.00-0.68); EOSINOPHILS PERCENT AUTO 1 % (0-6); IMMATURE GRAN ABSOLUTE AUTO 0.12 K/mm3 (0.00-0.10); IMMATURE GRAN PERCENT AUTO 2 % (0-1); LYMPHOCYTES ABSOLUTE AUTO 1.01 K/mm3 (0.84-5.20); LYMPHOCYTES PERCENT AUTO 14 % (21-46); MONOCYTES ABSOLUTE AUTO 0.49 K/mm3 (0.16-1.47); MONOCYTES PERCENT AUTO 7 % (4-13); Mean Corpuscular HGB 28.7 pg (26.0-34.0); Mean Corpuscular HGB Conc 32.3 g/dL (31.5-36.5); Mean Corpuscular Volume 89 fL (80-100); Mean Platelet Volume 8.8 fL (9.1-12.4); NEUTROPHILS ABSOLUTE AUTO 5.76 K/mm3 (1.96-9.15); NEUTROPHILS PERCENT AUTO 78 % (41-73); Platelet Count 464 K/mm3 (150-400); RDW Coefficient Variation 13.9 % (11.7-14.2); RDW Standard Deviation 45.1 fL (35.1-46.3); Red Blood Cell Count 3.48 M/mm3 (3.80-5.20); White Blood Cell Count 7.43 K/mm3 (4.00-11.30)
[2021-11-20 04:23] LABS: Alanine Aminotransfer (ALT/SGP 23 U/L (12-78); Albumin, Blood 2.8 g/dL (3.4-5.0); Albumin/Globulin Ratio 0.6 (0.8-1.8); Alk Phos 66 U/L (50-136); Anion Gap 7 mmol/L (6-16); Aspartate Aminotrans (AST/SGOT 26 U/L (12-37); Bilirubin, Total 0.4 mg/dL (0.1-1.0); Blood Urea Nitrogen 41 mg/dL (8-24); Bun/Creatinine Ratio 45.6 (12.0-20.0); CO2, Blood 26 mmol/L (21-32); Calcium, Blood 8.6 mg/dL (8.5-10.1); Chloride, Blood 102 mmol/L (98-108); Globulin, Blood 4.8 g/dL (2.2-4.0); Glomerular Filtration Rate >60 (60-); Glucose, Blood 94 mg/dL (70-99); Potassium, Blood 3.8 mmol/L (3.5-5.5); Sodium, Blood 135 mmol/L (136-145); Total Protein, Blood 7.6 g/dL (6.4-8.2)
--- NOTE | 2021-11-20 17:54 | NUR ---
PT SUMMARY: PT WAS UPSET AND IRRITATED AT THE BEGINNING OF THE SHIFT ATTEMPTED TO GET OUT OF THE BED PT WAS INSTRUCTED TO REMAIN IN BED TO WAIT FOR THIS RN TO GET GOWNED UP AND EVERYTHING WHEN THIS RN CAME IN THE ROOM PT YELLED "I CAN DO IT! MONE BEEN WAITING FOR SO LONG!" WANTING TO USE THE BEDSIDE COMMODE PT WAS EDUCATED ABOUT SAFETY AND NEEDING TO INCREASE O2 WITH ACTIVITY PT STARTED YELLING "GODDAMN IT! SHIT!" PT THEN STARTED TO GET IMPULSIVE NOT WANTING TO GET HELP FOM THIS RN AND PT WAS TANGLED UP WITH LINES AND TUBINGS PT STARTED PULLING ON THINGS THIS RN OFFERED HELP PT YELLED "SHIT! I CAN DO THIS!" PT GOT BACK IN BED PT NEEDING HELP WITH THE COLOSTOMY THIS RN OFFERED TO CHANGE IT THEN PT YELLED AGAIN "DONT YOU THINK I SHOULD EAT MY WARM BREAKFAST FIRST?!!" THEN CONTINUES TO CUSS OUT. THIS RN TOLD THE PT SHE CANT BE CUSSING OUT AND BEING DISRESPECTFUL THE PT YELLED BACK "YOU KNOW WHAT I CAN DO THIS! JUST! JUST LEAVE!" THIS ISSUE WAS BROUGHT UP WITH THE CHARGE NURSE, CN TALKED TO THE PT TO SET BOUNDARIES. PT THEN CALMED DOWN, APOLOGIZED AND STARTED GETTING EMOTIONAL. PT THEN WAS PLEASANT AND COOPERATIVE FOR THE REST OF THE SHIFT. TRANSITIONED TO HI DALJIT NASAL CANNULA AT 3L NEEDING 8L WITH ACTIVITY. PT WITH EXERTION, DENIES ANY PAIN. VITALS HAS BEEN STABLE AFEBRILE. SBA TO USE BSC. NO OTHER ISSUES ENCOUNTERED WILL REPORT TO ONCOMING SHIFT
--- NOTE | 2021-11-21 05:48 | NUR ---
SHIFT SUMMARY NO ACUTE CHANGES. PT A&OX4. SP02>92% ON 3L NC. PT HAS PRODUCTIVE COUGH WITH WHITE/CLEAR SPUTUM. TELEMETRY SHOWS NSR, HR 70'S. PT UP TO BSC 1 PERSON ASSIST TO VOID MULTIPLE TIMES. COLOSTOMY BAG EMPTIED OF LOOSE BROWN STOOL. PT C/O OF BACK PAIN D/T BED. NORCO GIVEN PER EMAR X1. PT SLEPT OFF AN ON DURING NIGHT. CALL LIGHT IN REACH.
[2021-11-21] MEDS ORDERED: Acetaminophen650 M1 PO (10:24)
[2021-11-21] MEDS ORDERED: BENMENLOZ MT (10:24)
[2021-11-21] MEDS ORDERED: BUME1 PO (10:27)
[2021-11-21] MEDS ORDERED: CEFP200 PO (10:28)
[2021-11-21] MEDS ORDERED: DECADRON6 M1 PO (10:52)
[2021-11-21] MEDS ORDERED: GUAI600T33 PO (10:53)
[2021-11-21] MEDS ORDERED: HYDHCL25 PO (10:53)
[2021-11-21] MEDS ORDERED: OMEP20ER PO (10:54)
--- NOTE | 2021-11-21 13:19 | NUR ---
PT DISCHARGE TO HOME TODAY WITH DISCHARGE ORDERS. HOME O2 EVAL DONE PT REQUIRING 2L AT REST AND 8L WITH AMBULATION. VITALS HAS BEEN STABLE, NO OTHER ISSUES ENCOUNTERED PRIOR TO DISCARGE. PRESCRIPTION SENT TO [facility], DISCHARGE INSTRUCTION AND NEW MEDICATION DISCLOSED WITH THE PT, PT VERBALIZED UNDERSTANDING. ALL BELONGINGS SENT WITH THE PT. ACCOMPANIED BY PCT VIA WHEELCHAIR FOR TRANSPORT, CAME TO [facility] [facility] PT
== END 2021-11-21 13:09 | disposition home or self-care (01) | DRG 177 ==
LOC: ER 16:40 → MEDS 22:44 → PCU 11-19 08:12
PROVIDERS: Internal Medicine; Physician Assistant; Student in an Organized Health Care Education/Training Program; ADMIT Internal Medicine
PROC: 8E0ZXY6 Isolation (ICD-10-PCS; 2021-11-14)
PROC: XW033E5 Introduction of Remdesivir Anti-infective into Peripheral Vein, Percutaneous Approach, New Technology Group 5 (ICD-10-PCS; principal; 2021-11-15)
PROC: 3E0DX3Z Introduction of Anti-inflammatory into Mouth and Pharynx, External Approach (ICD-10-PCS; 2021-11-15)
PROC: 5A0945A Assistance with Respiratory Ventilation, 24-96 Consecutive Hours, High Flow/Velocity Cannula (ICD-10-PCS; 2021-11-15)
PROC: XW0DXM6 Introduction of Baricitinib into Mouth and Pharynx, External Approach, New Technology Group 6 (ICD-10-PCS; 2021-11-19)
DX: U07.1 COVID-19 (principal); J12.82 Pneumonia due to coronavirus disease 2019; J96.01 Acute respiratory failure with hypoxia; J15.9 Unspecified bacterial pneumonia; E87.1 Hypo-osmolality and hyponatremia; N17.9 Acute kidney failure, unspecified; E85.81 Light chain (AL) amyloidosis; E11.22 Type 2 diabetes mellitus with diabetic chronic kidney disease; F41.9 Anxiety disorder, unspecified; I12.9 Hypertensive chronic kidney disease with stage 1 through stage 4 chronic kidney disease, or unspecified chronic kidney disease; N18.30 Chronic kidney disease, stage 3 unspecified; E03.9 Hypothyroidism, unspecified; D63.1 Anemia in chronic kidney disease; Z95.818 Presence of other cardiac implants and grafts; Z93.3 Colostomy status; Z90.49 Acquired absence of other specified parts of digestive tract; Z90.89 Acquired absence of other organs; Z91.041 Radiographic dye allergy status; Z28.21 Immunization not carried out because of patient refusal; Z88.5 Allergy status to narcotic agent; Z90.710 Acquired absence of both cervix and uterus; Z85.038 Personal history of other malignant neoplasm of large intestine
CPT/HCPCS: 0241U; 36415; 71045; 71260; 80048; 80053; 82728; 83615; 84145; 85025; 85379; 86140; 93005; 93010; 94667; 94761; 94762; 97110; 97161; 97165; 97530; 99285-25; A9270; C9399; J0248; J1200; J1650; J2930; J7050; Q9967

== ENCOUNTER → 2022-04-27 | Outpatient (CLI) | payer MEDICARE, OTHER ==
[~2022-04-27] MED LIST changes: +Acetaminophen650 M1 PO; +BENMENLOZ MT; +BUME1 PO; +CEFP200 PO; +DECADRON6 M1 PO; +GUAI600T33 PO; +HYDHCL25 PO; +OMEP20ER PO
== END | disposition home or self-care (01) ==
LOC: PLD 15:34 → LAB SHORT 15:34
DX: L91.8 Other hypertrophic disorders of the skin (principal)
CPT/HCPCS: 88304